=== PATIENT | male | born 1950 | race African-American/Black ===

== ENCOUNTER 2019-01-20 10:53 | Emergency (ER) | payer OTHER ==
[~2019-01-20] VITALS: Ht 175.3 cm; Wt 79.0 kg
[2019-01-20] MEDS ORDERED: TRAMADOL 50MG TABLET PO ONE (11:45)
[2019-01-20 12:53] VITALS: BP 129/68
== END 2019-01-20 12:55 | disposition home or self-care (01) ==
LOC: ER 10:53
DX: S93.491A Sprain of other ligament of right ankle, initial encounter (principal); S96.811A Strain of other specified muscles and tendons at ankle and foot level, right foot, initial encounter; E11.9 Type 2 diabetes mellitus without complications; I10 Essential (primary) hypertension; E78.00 Pure hypercholesterolemia, unspecified; F12.10 Cannabis abuse, uncomplicated; X50.1XXA Overexertion from prolonged static or awkward postures, initial encounter; Y93.89 Activity, other specified; Y92.488 Other paved roadways as the place of occurrence of the external cause
CPT/HCPCS: 73610; 73630; 99283